=== PATIENT | male | born 2000 | race Caucasian/White ===

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

== ENCOUNTER 2019-06-13 13:27 | Emergency (ER) | payer OTHER ==
[~2019-06-13] VITALS: Ht 167.6 cm; Wt 86.2 kg
[~2019-06-13 13:27] MED LIST changes: +ZOFRAN4 MG PO
== END 2019-06-13 18:05 | disposition home or self-care (01) ==
LOC: ER 13:27
DX: K29.70 Gastritis, unspecified, without bleeding (principal)

== ENCOUNTER 2023-10-24 06:16 | Emergency (ER) | payer OTHER ==
[~2023-10-24] VITALS: Ht 167.6 cm; Wt 90.7 kg
[2023-10-24] MEDS ORDERED: DIPHENHYDRAMINE HCL 50 MG/ML VIAL 1ML IM STA (08:27)
[2023-10-24] MEDS ORDERED: DEXAMETHASONE SODIUM PHOSPHATE 4 MG/ML VIAL IM STA (08:27)
== END 2023-10-24 08:40 | disposition home or self-care (01) ==
LOC: ER 06:17
DX: S69.82XA Other specified injuries of left wrist, hand and finger(s), initial encounter (principal); X58.XXXA Exposure to other specified factors, initial encounter; Y93.89 Activity, other specified; Y92.89 Other specified places as the place of occurrence of the external cause; Y99.9 Unspecified external cause status; Z88.6 Allergy status to analgesic agent

== ENCOUNTER 2024-11-22 23:53 | Emergency (ER) | payer OTHER ==
[~2024-11-22] VITALS: Ht 167.6 cm; Wt 90.7 kg
== END 2024-11-23 | disposition left against medical advice (07) ==
LOC: ER 23:54
DX: Z53.21 Procedure and treatment not carried out due to patient leaving prior to being seen by health care provider (principal)